=== PATIENT | female | born 1955 | race Asian ===

== ENCOUNTER 2017-08-30 12:11 | Emergency (ER) | payer SELFPAY ==
[~2017-08-30] VITALS: Ht 170.2 cm; Wt 72.6 kg
[2017-08-30 12:21] VITALS: Ht 170.2 cm; Wt 72.6 kg
[2017-08-30 15:15] VITALS: BP 115/73
== END 2017-08-30 15:15 | disposition home or self-care (01) ==
LOC: ED 12:11
DX: S06.0X0A Concussion without loss of consciousness, initial encounter (principal); S13.4XXA Sprain of ligaments of cervical spine, initial encounter; V43.62XA Car passenger injured in collision with other type car in traffic accident, initial encounter; Y93.I9 Activity, other involving external motion; Y92.89 Other specified places as the place of occurrence of the external cause; Y99.8 Other external cause status
CPT/HCPCS: J8597; Q0092; Q0162